=== PATIENT | male | born 1970 | race Caucasian/White ===

== ENCOUNTER 2020-01-18 15:01 | Inpatient (IN) | payer MEDICAID ==
[~2020-01-18] VITALS: Ht 170.2 cm; Wt 70.0 kg
[2020-01-18 16:23] VITALS: BP 124/83
[2020-01-18] MEDS ORDERED: ZOLPIDEM TARTRATE 10 MG TABLET PO PRN (16:30)
[2020-01-18] MEDS ORDERED: LITH300CRT PO (16:45)
[2020-01-18] MEDS ORDERED: ALPR0.255 PO (16:45)
[2020-01-18] MEDS ORDERED: METH-624 PO (16:45)
[2020-01-18] MEDS ORDERED: ARIP10TA8 PO (16:45)
[2020-01-18] MEDS ORDERED: PNEUMOCOCCAL VACCINE POLYVALENT 0.5 ML VIAL [PPSV23] IM ONE (17:00)
[2020-01-18] MEDS: LORazepam 2 MG TABLET PO PRN (18:15)
[2020-01-19 05:25] VITALS: BP 114/74
[2020-01-19 08:16] VITALS: BP 124/70
[2020-01-19 08:33] LABS: BASOPHILS % (AUTO) 1.1 % (0.0-2.0); EOSINOPHILS % (AUTO) 2.3 % (1.0-6.0); HEMATOCRIT 45.1 % (41-53); HEMOGLOBIN 15.2 g/dL (13.5-17.5); LYMPHOCYTES # (AUTO) 2.4 K/uL (1.0-4.8); MEAN CORPUSCULAR HEMOGLOBIN 31.5 pg (26.0-34.0); MEAN CORPUSCULAR HGB CONC 33.8 G/dL (31.0-37.0); MEAN CORPUSCULAR VOLUME 93 fL (80-100); MONOCYTES # (AUTO) 0.6 K/uL (0.1-1.0); MONOCYTES % (AUTO) 6.8 % (2.0-9.0); NEUTROPHILS # (AUTO) 5.9 K/uL (1.8-7.7); NEUTROPHILS % (AUTO) 63.8 % (40.0-70.0); PLATELET COUNT (AUTO) 310 K/uL (150-450); RED BLOOD CELL COUNT(AUTO) 4.84 MIL/uL (4.50-5.90); RED CELL DISTRIBUTION WIDTH 13.9 % (11.5-14.5)
[2020-01-19] MEDS: NICOTINE 14 MG/24 HOUR PATCH TD SCH (08:55)
[2020-01-19 09:01] LABS: ALANINE AMINOTRANSFERASE 30 U/L (12-78); ALBUMIN 3.9 g/dL (3.4-5.0); ALKALINE PHOSPHATASE 121 U/L (46-116); ANION GAP 8 mmol/L (8-16); ASPARTATE AMINOTRANSFERASE 28 U/L (15-37); BILIRUBIN,TOTAL 0.3 mg/dL (0.1-1.0); CALCIUM, TOTAL 9.5 mg/dL (8.8-10.5); CARBON DIOXIDE 27 mmol/L (22-29); CHLORIDE 105 mmol/L (98-107); CHOL/HDL RATIO 3.4 (4.2-7.3); CHOLESTEROL 164 mg/dL (131-200); CREATININE 1.08 mg/dL (0.60-1.30); FREE T4 (FREE THYROXINE) 0.89 ng/dL (0.76-1.46); GLOMERULAR FILTR. RATE CALC > 60 mL/min (>60); GLUCOSE,RANDOM 80 mg/dL (70-110); HDL CHOLESTEROL 48 mg/dL (40-60); LDL CHOL (CALC.) 107 mg/dL (0-130); POTASSIUM 4.9 mmol/L (3.5-5.1); SODIUM SERUM 140 mmol/L (136-145); THYROID STIMULATING HORMONE 1.21 uIU/mL (0.36-3.74); TOTAL PROTEIN, SERUM 7.4 g/dL (6.4-8.2); TRIGLYCERIDES 47 mg/dL (15-150); UREA NITROGEN, BLOOD 21 mg/dL (7-18)
[2020-01-19 09:13] LABS: AMPHET/METH SCREEN,URINE POSITIVE (NEGATIVE); APPEARANCE,URINE CLEAR (CLEAR); BARBITURATE SCREEN, URINE NEGATIVE (NEGATIVE); BENZODIAZEPINES SCREEN,URINE NEGATIVE (NEGATIVE); BILIRUBIN,URINE NEGATIVE (NEGATIVE); CANNABINOID SCREEN,URINE POSITIVE (NEGATIVE); COCAINE SCREEN,URINE NEGATIVE (NEGATIVE); GLUCOSE, URINE (UA) NEGATIVE (NEGATIVE); KETONES,URINE NEGATIVE (NEGATIVE); LEUKOCYTE ESTERASE ,URINE NEGATIVE (NEGATIVE); METHADONE SCREEN, URINE NEGATIVE (NEGATIVE); NITRATE,URINE NEGATIVE (NEGATIVE); OCCULT BLOOD,URINE NEGATIVE (NEGATIVE); OPIATE SCREEN,URINE NEGATIVE (NEGATIVE); PH,URINE 6.5 (5.0-8.0); PROTEIN,URINE NEGATIVE (NEGATIVE); UROBILINOGEN,URINE 0.2 mg/dL (<=1.0)
[2020-01-19 09:18] LABS: PHENCYCLIDINE SCREEN,URINE NEGATIVE (NEGATIVE)
[2020-01-19] MEDS: LORazepam 2 MG TABLET PO PRN ×2 (12:11→19:30)
[2020-01-19 16:04] VITALS: BP 113/58
[2020-01-20 05:43] VITALS: BP 112/62
[2020-01-20 08:23] VITALS: BP 121/76
[2020-01-20] MEDS: LORazepam 2 MG TABLET PO PRN ×3 (08:55→20:14)
[2020-01-20] MEDS: NICOTINE 14 MG/24 HOUR PATCH TD SCH (08:56)
[2020-01-20 16:39] VITALS: BP 127/84
[2020-01-21 04:08] VITALS: BP 119/78
[2020-01-21 08:11] VITALS: BP 128/70
[2020-01-21] MEDS: NICOTINE 14 MG/24 HOUR PATCH TD SCH (09:16)
== END 2020-01-21 15:30 | disposition home or self-care (01) | DRG 885 ==
LOC: B3A 16:29
PROVIDERS: ADMIT Psychiatry & Neurology Psychiatry; ATTEND Psychiatry & Neurology Psychiatry
DX: F31.9 Bipolar disorder, unspecified (principal); K62.3 Rectal prolapse; K40.90 Unilateral inguinal hernia, without obstruction or gangrene, not specified as recurrent; J44.9 Chronic obstructive pulmonary disease, unspecified; F17.200 Nicotine dependence, unspecified, uncomplicated; F15.90 Other stimulant use, unspecified, uncomplicated; F12.90 Cannabis use, unspecified, uncomplicated; Z88.0 Allergy status to penicillin; F19.10 Other psychoactive substance abuse, uncomplicated; Z28.21 Immunization not carried out because of patient refusal
CPT/HCPCS: 80307; 84439; 84443

== ENCOUNTER 2022-03-23 21:50 | Inpatient (IN) | payer MEDICAID ==
[~2022-03-23] VITALS: Ht 172.7 cm; Wt 64.9 kg
[2022-03-23 23:06] LABS: BASOPHILS % (AUTO) 0.5 % (0.0-2.0); EOSINOPHILS % (AUTO) 0.2 % (1.0-6.0); HEMATOCRIT 42.8 % (41-53); HEMOGLOBIN 14.1 g/dL (13.5-17.5); LYMPHOCYTES # (AUTO) 1.2 K/uL (1.0-4.8); LYMPHOCYTES % (AUTO) 6.7 % (22.0-44.0); MEAN CORPUSCULAR HEMOGLOBIN 30.6 pg (26.0-34.0); MEAN CORPUSCULAR HGB CONC 32.8 G/dL (31.0-37.0); MEAN CORPUSCULAR VOLUME 93 fL (80-100); MONOCYTES # (AUTO) 0.9 K/uL (0.1-1.0); MONOCYTES % (AUTO) 4.8 % (2.0-9.0); NEUTROPHILS # (AUTO) 15.9 K/uL (1.8-7.7); NEUTROPHILS % (AUTO) 87.8 % (40.0-70.0); PLATELET COUNT (AUTO) 292 K/uL (150-450); RED CELL DISTRIBUTION WIDTH 14.2 % (11.5-14.5)
[2022-03-23 23:16] LABS: ANION GAP 8 mmol/L (8-16); CALCIUM, TOTAL 9.5 mg/dL (8.8-10.5); CARBON DIOXIDE 26 mmol/L (22-29); CHLORIDE 105 mmol/L (98-107); GLOMERULAR FILTR. RATE CALC > 60 mL/min (>60); GLUCOSE,RANDOM 114 mg/dL (70-110); SODIUM SERUM 139 mmol/L (136-145); UREA NITROGEN, BLOOD 17 mg/dL (7-18)
[2022-03-23 23:21] LABS: ALANINE AMINOTRANSFERASE 18 U/L (12-78); ALKALINE PHOSPHATASE 98 U/L (46-116); ASPARTATE AMINOTRANSFERASE 19 U/L (15-37); BILIRUBIN,TOTAL 0.3 mg/dL (0.1-1.0); TOTAL PROTEIN, SERUM 7.4 g/dL (6.4-8.2)
[2022-03-24] MEDS ORDERED: HALOPERIDOL LACTATE 5 MG/ML VIAL IM ONE (01:00)
[2022-03-24] MEDS ORDERED: DiphenhydrAMINE HCL 50 MG/ML VIAL IM ONE (01:00)
[2022-03-24] MEDS ORDERED: LORazepam 2 MG/ML VIAL IM ONE (01:00)
[2022-03-24 03:03] LABS: COVID AG,FIA SOURCE NASAL SWAB
[2022-03-24] MEDS ORDERED: ACETAMINOPHEN 325 MG TABLET PO PRN (04:30)
[2022-03-24] MEDS: ZOLPIDEM TARTRATE 10 MG TABLET PO PRN (23:01)
[2022-03-24] MEDS: LORazepam 2 MG TABLET PO PRN (23:01)
[2022-03-25 08:12] LABS: AMPHET/METH SCREEN,URINE POSITIVE (NEGATIVE); BARBITURATE SCREEN, URINE NEGATIVE (NEGATIVE); BENZODIAZEPINES SCREEN,URINE NEGATIVE (NEGATIVE); CANNABINOID SCREEN,URINE POSITIVE (NEGATIVE); COCAINE SCREEN,URINE NEGATIVE (NEGATIVE); METHADONE SCREEN, URINE NEGATIVE (NEGATIVE); OPIATE SCREEN,URINE NEGATIVE (NEGATIVE)
[2022-03-25 08:17] LABS: PHENCYCLIDINE SCREEN,URINE NEGATIVE (NEGATIVE)
[2022-03-25 18:08] VITALS: BP 141/91
[2022-03-25] MEDS ORDERED: PNEUMOCOCCAL VACCINE POLYVALENT 0.5 ML VIAL [PPSV23] IM. ONE (18:30)
[2022-03-25] MEDS ORDERED: INFLUENZA VIRUS VACCINE QVS 2022-23 (6MO+)/PF 60 MCG/0.5 ML SYRINGE IM. ONE (18:30)
[2022-03-25] MEDS: HALOPERIDOL 5 MG TABLET PO PRN (18:36)
[2022-03-25] MEDS: LORazepam 2 MG TABLET PO PRN (18:36)
[2022-03-26] MEDS: LORazepam 2 MG TABLET PO PRN (13:10)
[2022-03-26] MEDS: HALOPERIDOL 5 MG TABLET PO PRN (13:11)
[2022-03-26 13:36] VITALS: BP 133/83
[2022-03-26 17:50] VITALS: BP 130/85
[2022-03-26] MEDS: RisperiDONE 1 MG TABLET PO SCH (20:29)
[2022-03-27 08:00] VITALS: BP 115/66
[2022-03-27] MEDS: RisperiDONE 1 MG TABLET PO SCH ×2 (09:08→20:44)
[2022-03-27] MEDS: LORazepam 2 MG TABLET PO PRN (11:12)
[2022-03-27 16:00] VITALS: BP 111/60
[2022-03-27] MEDS: ZOLPIDEM TARTRATE 10 MG TABLET PO PRN (20:44)
[2022-03-28] MEDS: LORazepam 2 MG TABLET PO PRN ×2 (07:51→23:20)
[2022-03-28] MEDS: RisperiDONE 1 MG TABLET PO SCH ×2 (08:03→20:04)
[2022-03-28 08:38] VITALS: BP 110/61
[2022-03-28 08:57] LABS: APPEARANCE,URINE CLEAR (CLEAR); BILIRUBIN,URINE NEGATIVE (NEGATIVE); GLUCOSE, URINE (UA) NEGATIVE (NEGATIVE); KETONES,URINE NEGATIVE (NEGATIVE); LEUKOCYTE ESTERASE ,URINE NEGATIVE (NEGATIVE); NITRATE,URINE NEGATIVE (NEGATIVE); OCCULT BLOOD,URINE NEGATIVE (NEGATIVE); PROTEIN,URINE NEGATIVE (NEGATIVE); SPECIFIC GRAVITIY, URINE 1.015 (1.003-1.030); UROBILINOGEN,URINE <=1.0 mg/dL (<=1.0)
[2022-03-28 16:13] VITALS: BP 139/84
[2022-03-28] MEDS: ZOLPIDEM TARTRATE 10 MG TABLET PO PRN (20:04)
[2022-03-28] MEDS: HALOPERIDOL 5 MG TABLET PO PRN (23:20)
[2022-03-29 08:00] VITALS: BP 118/61
[2022-03-29] MEDS: RisperiDONE 1 MG TABLET PO SCH ×2 (09:56→20:49)
[2022-03-29 13:50] LABS: COVID AG,FIA SOURCE NASAL SWAB
[2022-03-29] MEDS: LORazepam 2 MG TABLET PO PRN ×2 (14:30→23:58)
[2022-03-29] MEDS: HALOPERIDOL 5 MG TABLET PO PRN ×2 (14:42→23:58)
[2022-03-29] MEDS: NICOTINE 21 MG/24 HOUR PATCH TD PRN (16:31)
[2022-03-29 16:40] VITALS: BP 127/73
[2022-03-29 20:27] VITALS: BP 121/75
[2022-03-30] MEDS: RisperiDONE 1 MG TABLET PO SCH ×2 (08:29→20:15)
[2022-03-30 09:21] VITALS: BP 120/68
[2022-03-30] MEDS: NICOTINE 21 MG/24 HOUR PATCH TD PRN (13:37)
[2022-03-30] MEDS: LORazepam 2 MG TABLET PO PRN ×2 (13:37→18:05)
[2022-03-30 16:38] VITALS: BP 116/81
[2022-03-30] MEDS: HALOPERIDOL 5 MG TABLET PO PRN (18:05)
[2022-03-30] MEDS: ZOLPIDEM TARTRATE 10 MG TABLET PO PRN (20:56)
[2022-03-31] MEDS: RisperiDONE 1 MG TABLET PO SCH (07:49)
[2022-03-31] MEDS: HALOPERIDOL 5 MG TABLET PO PRN (07:49)
[2022-03-31] MEDS: LORazepam 2 MG TABLET PO PRN (07:49)
[2022-03-31 08:02] VITALS: BP 147/87
[2022-03-31] MEDS ORDERED: DIVA-112 PO (10:18)
[2022-03-31] MEDS ORDERED: RISP1TAB98 PO (10:18)
== END 2022-03-31 11:35 | disposition home or self-care (01) | DRG 750 ==
LOC: EMS 21:51 → 3EC 03-25 17:35
PROVIDERS: ADMIT Psychiatry & Neurology Psychiatry; ATTEND Psychiatry & Neurology Psychiatry
DX: F25.9 Schizoaffective disorder, unspecified (principal); R45.851 Suicidal ideations; F12.90 Cannabis use, unspecified, uncomplicated; S61.216A Laceration without foreign body of right little finger without damage to nail, initial encounter; S61.212A Laceration without foreign body of right middle finger without damage to nail, initial encounter; F17.210 Nicotine dependence, cigarettes, uncomplicated; Z20.822 Contact with and (suspected) exposure to COVID-19; W25.XXXA Contact with sharp glass, initial encounter; J44.9 Chronic obstructive pulmonary disease, unspecified; S61.411A Laceration without foreign body of right hand, initial encounter; F15.10 Other stimulant abuse, uncomplicated; F32.A Depression, unspecified; F41.9 Anxiety disorder, unspecified; G47.00 Insomnia, unspecified; K59.00 Constipation, unspecified; Z88.0 Allergy status to penicillin; Y93.89 Activity, other specified; Y92.89 Other specified places as the place of occurrence of the external cause; Y99.8 Other external cause status; Z79.899 Other long term (current) drug therapy; Z71.6 Tobacco abuse counseling
CPT/HCPCS: 12002; 80053; 81003; 85025; 87081; 99291; G0480; J1200; J1630; J2060

== ENCOUNTER 2022-05-23 16:44 | Emergency (ER) | payer MEDICAID ==
[~2022-05-23] VITALS: Ht 170.2 cm; Wt 72.7 kg
[~2022-05-23 16:44] MED LIST: DIVA-112 PO; RISP1TAB98 PO
[2022-05-23 16:51] VITALS: BP 131/78
[2022-05-23 18:24] LABS: BASOPHILS % (AUTO) 1.2 % (0.0-2.0); EOSINOPHILS % (AUTO) 1.9 % (1.0-6.0); HEMATOCRIT 46.2 % (41-53); HEMOGLOBIN 15.6 g/dL (13.5-17.5); LYMPHOCYTES # (AUTO) 2.6 K/uL (1.0-4.8); LYMPHOCYTES % (AUTO) 30.8 % (22.0-44.0); MEAN CORPUSCULAR HEMOGLOBIN 31.6 pg (26.0-34.0); MEAN CORPUSCULAR HGB CONC 33.7 G/dL (31.0-37.0); MEAN CORPUSCULAR VOLUME 94 fL (80-100); MONOCYTES # (AUTO) 0.6 K/uL (0.1-1.0); MONOCYTES % (AUTO) 7.2 % (2.0-9.0); NEUTROPHILS # (AUTO) 5.1 K/uL (1.8-7.7); NEUTROPHILS % (AUTO) 58.9 % (40.0-70.0); PLATELET COUNT (AUTO) 307 K/uL (150-450); RED BLOOD CELL COUNT(AUTO) 4.93 MIL/uL (4.50-5.90); RED CELL DISTRIBUTION WIDTH 14.2 % (11.5-14.5)
[2022-05-23 18:32] LABS: ANION GAP 9 mmol/L (8-16); CALCIUM, TOTAL 9.6 mg/dL (8.8-10.5); CARBON DIOXIDE 29 mmol/L (22-29); CHLORIDE 101 mmol/L (98-107); CREATININE 1.07 mg/dL (0.60-1.30); GLUCOSE,RANDOM 89 mg/dL (70-110); POTASSIUM 4.6 mmol/L (3.5-5.1); SODIUM SERUM 139 mmol/L (136-145); UREA NITROGEN, BLOOD 17 mg/dL (7-18)
[2022-05-23 18:38] LABS: GLOMERULAR FILTR. RATE CALC > 60 mL/min (>60)
[2022-05-23 18:39] LABS: ALANINE AMINOTRANSFERASE 19 U/L (12-78); ALBUMIN 4.1 g/dL (3.4-5.0); ALKALINE PHOSPHATASE 128 U/L (46-116); ASPARTATE AMINOTRANSFERASE 17 U/L (15-37); BILIRUBIN,TOTAL 0.2 mg/dL (0.1-1.0)
[2022-05-23 18:49] LABS: AMPHET/METH SCREEN,URINE POSITIVE (NEGATIVE); BARBITURATE SCREEN, URINE NEGATIVE (NEGATIVE); BENZODIAZEPINES SCREEN,URINE NEGATIVE (NEGATIVE); CANNABINOID SCREEN,URINE POSITIVE (NEGATIVE); COCAINE SCREEN,URINE NEGATIVE (NEGATIVE); METHADONE SCREEN, URINE NEGATIVE (NEGATIVE); OPIATE SCREEN,URINE NEGATIVE (NEGATIVE)
[2022-05-23 18:50] LABS: PHENCYCLIDINE SCREEN,URINE NEGATIVE (NEGATIVE)
[2022-05-23 18:50] LABS: VALPROIC ACID < 3 mcg/mL (50-100)
== END 2022-05-23 20:08 | disposition home or self-care (01) ==
LOC: EMS 16:45
DX: R45.851 Suicidal ideations (principal); F31.9 Bipolar disorder, unspecified; F20.9 Schizophrenia, unspecified; F17.210 Nicotine dependence, cigarettes, uncomplicated; F15.90 Other stimulant use, unspecified, uncomplicated; Z88.0 Allergy status to penicillin
CPT/HCPCS: 99284; 80053; 80164; 85025; 36415; 80307; G0480